=== PATIENT | female | born 1980 | race Caucasian/White ===

== ENCOUNTER → 2021-02-24 | Outpatient (CLI) | payer OTHER | LOC: KOH-I 13:33 | DX: M25.572 Pain in left ankle and joints of left foot (principal); S82.302D Unspecified fracture of lower end of left tibia, subsequent encounter for closed fracture with routine healing; S82.832D Other fracture of upper and lower end of left fibula, subsequent encounter for closed fracture with routine healing | CPT/HCPCS: 73610; 73630 ==

== ENCOUNTER → 2021-03-13 | Outpatient (CLI) | payer OTHER | LOC: KOH-I 03-07 15:00 | DX: R93.6 Abnormal findings on diagnostic imaging of limbs (principal); M25.572 Pain in left ankle and joints of left foot; S93.325D Dislocation of tarsometatarsal joint of left foot, subsequent encounter | CPT/HCPCS: 73700 ==

== ENCOUNTER 2021-08-25 00:04 | Inpatient (IN) | payer OTHER ==
[~2021-08-25] VITALS: Ht 172.7 cm; Wt 59.0 kg
[2021-08-25 01:20] LABS: HEMOGLOBIN 15.8 gm/dl (12.3-15.3); RED BLOOD COUNT 4.82 M/UL (4.00-5.10); WHITE BLOOD COUNT 16.7 K/UL (4.5-11.0)
[2021-08-25 02:19] LABS: BUN/CREATININE RATIO 14 (0-10)
[2021-08-25 10:51] LABS: BUN/CREATININE RATIO 13 (0-10)
[2021-08-25] MEDS ORDERED: ESZOPICLONE3 MG PO (11:17)
[2021-08-25] MEDS ORDERED: KLONOPIN0.5 MG PO (11:17)
[2021-08-25] MEDS ORDERED: PROTONIX 40 MG40 MG PO (11:18)
[2021-08-25] MEDS ORDERED: GABAPENTIN300 MG PO (11:18)
[2021-08-25] MEDS ORDERED: PROTONIX 40 MG40 M1 PO (11:18)
[2021-08-25] MEDS ORDERED: METOPROLOL SUCC25 MG PO (11:19)
[2021-08-25] MEDS ORDERED: TIZANIDINE HCL4 MG PO (11:19)
[2021-08-26 04:54] LABS: HEMOGLOBIN 13.5 gm/dl (12.3-15.3); RED BLOOD COUNT 3.97 M/UL (4.00-5.10)
[2021-08-26 05:19] LABS: BUN/CREATININE RATIO 12 (0-10)
[2021-08-27 02:49] LABS: HEMOGLOBIN 13.1 gm/dl (12.3-15.3); RED BLOOD COUNT 3.89 M/UL (4.00-5.10); WHITE BLOOD COUNT 12.5 K/UL (4.5-11.0)
[2021-08-27 03:15] LABS: BUN/CREATININE RATIO 17 (0-10)
[2021-08-28 03:29] LABS: RED BLOOD COUNT 4.18 M/UL (4.00-5.10); WHITE BLOOD COUNT 11.9 K/UL (4.5-11.0)
[2021-08-28 03:46] LABS: BUN/CREATININE RATIO 9 (0-10)
--- NOTE | 2021-08-28 18:15 | NUR ---
PATIENT REQUEST TO GO DOWNSTAIRS. UPON RETURN PATIENT STATED SHE HAD EATEN CHICKEN SALAD FROM THE [place]. PATIENT IS ON A FULL LIQUID DIET.
--- NOTE | 2021-08-29 00:48 | NUR ---
PT CALLING OUT WANTING PAIN MEDICATIONS AND PHENERGAN. PT HAS NO IV ACESS AT THIS TIME. IV ACESS WAS ESTABLISHED APROX 1919. WHEN ADMINSTERING PHENERGAN PT STATES SHE DIDNT RECIEVE HER PAIN MEDICAITON THAT HER IV BLEW BEFORE SHE RECIEVED IT. I STATED TO THE PT THAT IN REPORT I WAS TOLD SHE RECIEVED HER PAIN MEDICATIONS AND IT BLEW DURING FLUSH AFTER RECIEVING PAIN MEDS. SHE STATES SHE TOLD THE NURSE IT WAS BURNING AND NOT TO FINISH ADMINSTERING THE DILAUDID AND THE NURSE STOPPED. SHE STATES SHE IS NOT LYING AND IS CRYING AT THIS POINT. I TOLD THE PT I WOULD GO CALL THE NURSE AND VERIFY THAT I MAY HAVE MISUNDERSTOOD HER. CALLED HOUSE TO [place] RN HOME NUMBER. 2002 I CALL THE RN AT HOME AND SHE VERIFIES THAT SHE DID RECIEVE THE FULL AMOUNT OF DILAUDID AND IT BLEW WHEN ADMINSTERING THE FLUSH AFTER ADMINSTERING THE DILAUDID. AT 0810 WENT TO NOTIFY PT OF THIS AND PT IS ASLEEP IN THE BED. AT 2129 WHEN DILAUDID WAS DUE AGAIN I ADVISED THE PT OF THE ABOVE AND SHE SAID OH OK THATS FINE ANYWAYS.
--- NOTE | 2021-08-29 01:01 | NUR ---
PT OFF FLOOR AT 2140.
--- NOTE | 2021-08-29 02:00 | NUR ---
0158 PT IS REQUESTING A TONIO WITH [facility]. CHECKED PT DIET AND PT IS ON FULL LIQUID DIET. NOTIFIED PT OF THIS AND SHE STATES SHE WILL JUST GO TO THE VENDING MACHINE. PT LEFT ROOM TO [facility] WAS ASKING OTHER STAFF ABOUT TONIO WELL.
[2021-08-29 10:48] LABS: BUN/CREATININE RATIO 4 (0-10)
[2021-08-29 12:03] LABS: WHITE BLOOD COUNT 9.1 K/UL (4.5-11.0)
[2021-08-29 12:40] LABS: RED BLOOD COUNT 3.36 M/UL (4.00-5.10)
[2021-08-29 12:41] LABS: HEMOGLOBIN 11.2 gm/dl (12.3-15.3)
[2021-08-30 05:27] LABS: WHITE BLOOD COUNT 10.9 K/UL (4.5-11.0)
[2021-08-30 05:28] LABS: RED BLOOD COUNT 4.32 M/UL (4.00-5.10)
[2021-08-30 05:29] LABS: HEMOGLOBIN 14.1 gm/dl (12.3-15.3)
[2021-08-30 06:16] LABS: BUN/CREATININE RATIO 6 (0-10)
--- NOTE | 2021-08-30 10:24 | NUR ---
PATIENT SAYS HER ABDOMINAL PAIN/SIDE PAIN IS "ALWAYS A 10". LEAVES THE FLOOR TO GO SMOKE AFTER SHE RECEIVES HER PAIN AND NAUSEA MEDICATION.
--- NOTE | 2021-09-01 12:57 | NUR ---
PT EDUCATED ON SAFETY OF NOT LEAVING THE FLOOR, SHE SAID SHE ONLY GOES OUT A FEW TIMES.
[2021-09-02 08:29] LABS: HEMOGLOBIN 13.7 gm/dl (12.3-15.3); RED BLOOD COUNT 4.09 M/UL (4.00-5.10); WHITE BLOOD COUNT 14.3 K/UL (4.5-11.0)
[2021-09-02 10:33] LABS: BUN/CREATININE RATIO 5 (0-10)
[2021-09-03 02:54] LABS: HEMOGLOBIN 13.9 gm/dl (12.3-15.3); RED BLOOD COUNT 4.12 M/UL (4.00-5.10); WHITE BLOOD COUNT 11.8 K/UL (4.5-11.0)
[2021-09-03 03:21] LABS: BUN/CREATININE RATIO 7 (0-10)
[2021-09-04 05:48] LABS: HEMOGLOBIN 13.1 gm/dl (12.3-15.3); RED BLOOD COUNT 4.06 M/UL (4.00-5.10); WHITE BLOOD COUNT 10.9 K/UL (4.5-11.0)
[2021-09-04 06:02] LABS: BUN/CREATININE RATIO 8 (0-10)
[2021-09-04] MEDS ORDERED: PHENERGAN 12.12.5 M1 PO (10:05)
== END 2021-09-04 12:57 | disposition home or self-care (01) | DRG 439 ==
LOC: ER1 00:04 → MED SURG 4 04:22 → CDU 04:22 → 3 EAST 04:22 → MED SURG 4 08-27 17:35
PROVIDERS: Internal Medicine; Physician Assistant; Physician Assistant Medical; ADMIT Internal Medicine Infectious Disease
DX: K85.20 Alcohol induced acute pancreatitis without necrosis or infection (principal); E44.1 Mild protein-calorie malnutrition; Z68.1 Body mass index [BMI] 19.9 or less, adult; Z20.822 Contact with and (suspected) exposure to COVID-19; E87.70 Fluid overload, unspecified; K82.8 Other specified diseases of gallbladder; B19.20 Unspecified viral hepatitis C without hepatic coma; F10.10 Alcohol abuse, uncomplicated; I10 Essential (primary) hypertension; F17.210 Nicotine dependence, cigarettes, uncomplicated; E87.6 Hypokalemia; F41.9 Anxiety disorder, unspecified; K21.9 Gastro-esophageal reflux disease without esophagitis; K70.0 Alcoholic fatty liver; Z98.51 Tubal ligation status; Z98.890 Other specified postprocedural states; Z82.49 Family history of ischemic heart disease and other diseases of the circulatory system
CPT/HCPCS: 36415; 71045; 76705; 80048; 80053; 81001; 82550; 82553; 83605; 83690; 83735; 83874; 84484; 84703; 85025; 85027; 87040; 87086; 93005; 96365; 96367; 96375; 96376; 99285; C9113; J0295; J1170; J1335; J1650; J2270; J2405; J2550; J3411; J3475; J3480; J7030; J7120; Q9967; U0002

== ENCOUNTER → 2022-01-15 | Outpatient (CLI) | payer OTHER ==
[~2022-01-15] MED LIST: ESZOPICLONE3 MG PO; GABAPENTIN300 MG PO; KLONOPIN0.5 MG PO; METOPROLOL SUCC25 MG PO; PHENERGAN 12.12.5 M1 PO; PROTONIX 40 MG40 M1 PO; PROTONIX 40 MG40 MG PO; TIZANIDINE HCL4 MG PO
== END ==
LOC: KOH-I 12:40
DX: R91.1 Solitary pulmonary nodule (principal)
CPT/HCPCS: 71250

== ENCOUNTER → 2022-01-28 | Outpatient (CLI) | payer OTHER | LOC: HEART 5 16:26 | DX: R06.02 Shortness of breath (principal) | CPT/HCPCS: 94060; 94729 ==